=== PATIENT | female | born 1940 ===

== ENCOUNTER 2018-12-17 07:00 | Day surgery (SDC) | payer OTHER ==
[~2018-12-17] VITALS: Ht 160 cm; Wt 64.9 kg
[~2018-12-17 07:00] MED LIST: ASA81 MG PO; JANUVIA100 MG PO; LANTUS SOL100 UNIT/1 SUBCUTANEO; NEURONTIN600 MG PO; PREVACID15 MG PO; QUINAPRIL HCL20 MG PO; ROSUVASTATIN CA20 MG PO
== END 2018-12-18 09:00 | disposition home or self-care (01) ==
LOC: SURH 07:00 → CIR.AMB 07:00 → EDSTATUS 09:00 → SURH 09:00 → O/R 13:23 → SURH 15:20 → CIR.AMB 12-18 09:00 → SURH 12-18 13:34 → O/R 12-18 13:34
DX: C50.111 Malignant neoplasm of central portion of right female breast (principal)